=== PATIENT | male | born 1950 | race Caucasian/White ===

== ENCOUNTER → 2016-10-24 | Outpatient (CLI) | payer OTHER, MEDICARE | LOC: BMCIMAGING 08:28 | PROVIDERS: ATTEND Emergency Medicine | DX: M79.644 Pain in right finger(s) (principal) ==

== ENCOUNTER → 2018-06-11 | Outpatient (CLI) | payer OTHER, MEDICARE ==
[~2018-06-11] MED LIST: GADOBUTROL 10 ML VIAL IVP ONE
== END ==
LOC: FIMAGING 12:33
PROVIDERS: ATTEND Internal Medicine
DX: D35.2 Benign neoplasm of pituitary gland (principal)
CPT/HCPCS: 70553; A9585; 82565-PO